=== PATIENT | male | born 1955 | race Caucasian/White ===

== ENCOUNTER → 2018-11-22 | Outpatient (CLI) | payer OTHER, SELFPAY | PROVIDERS: PCP Internal Medicine; Visit Provider Internal Medicine | DX: Z00.00 Encounter for general adult medical examination without abnormal findings (principal); R73.03 Prediabetes; I10 Essential (primary) hypertension; E78.2 Mixed hyperlipidemia; Z79.899 Other long term (current) drug therapy; E03.9 Hypothyroidism, unspecified | CPT/HCPCS: 36415; 80053; 80061; 83036; 84443 ==

== ENCOUNTER → 2020-07-07 15:13 | Outpatient (CLI) | payer OTHER, SELFPAY ==
--- NOTE | ~2020-07-07 | US_ITS ---
EXAMINATION: US scrotum doppler EXAM DATE: 07/07/2020 15:45 INDICATION: N50.819 - Testicular pain, unspecified. TECHNIQUE: Multiple grayscale and Doppler images of the testicles and scrotum were obtained bilateral ly. There is no prior study for comparison. FINDINGS: Right testicle measures 3.4 x 2.4 x 2.7 cm and is morphologically normal. Low resistance Doppler khanh w confirmed. The epididymis is unremarkable. Small varicocele and trace hydrocele. Left testicle measures 3.9 x 1.7 x 2.7 cm and is morphologically normal. Low resistance Doppler flow confirmed. The epididymis is unremarkable. Trace hydrocele. IMPRESSION: 1. Small right varicocele and trace hydrocele. 2. Trace left hydrocele. Reviewed, dictated and finalized at location B. 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
== END ==
PROVIDERS: Visit Provider Internal Medicine
DX: N50.819 Testicular pain, unspecified (principal); N43.3 Hydrocele, unspecified
CPT/HCPCS: 76870; 93976

== ENCOUNTER 2022-01-12 17:41 | Emergency (ER) | payer OTHER, SELFPAY ==
[2022-01-12 17:50] VITALS: BP 127/75; PULSE 92; RESP 16; TEMP 36; O2SAT 98
--- NOTE | 2022-01-12 18:05 | ED.URI ---
HPI - URI/Sore Throat General Chief Complaint: Upper Respiratory Infection Stated Complaint: Sore throat, drainage Time Seen by Provider: 01/12/22 18:06 Source: patient, RN notes reviewed and old records reviewed Mode of arrival: ambulatory Limitations: no limitations History of Present Illness HPI Narrative: 66-year-old male presents to the [facility] with complaints of sinus drainage, worse at night has been going on for the last 2 to 3 days. Has taken throat lozenges and does take Claritin daily. Denies any fever, chest pain, abdominal pain. Related Data Home Medications Medication Instructions Recorded Confirmed loratadine 10 mg tablet 10 mg PO DAILY 05/18/19 01/12/22 multivitamin 1 tablet PO DAILY 05/18/19 01/12/22 omega 5-mfr-zti-fish oil 1,000 mg 1 cap PO DAILY 05/18/19 01/12/22 (120 mg-180 mg) capsule (Fish Oil) Allergies Allergy/AdvReac Type Severity Reaction Status Date / Time No Known Allergies Allergy Verified 01/12/22 17:43 Review of Systems Review of Systems: All systems reviewed & are unremarkable except as noted in HPI and below Constitutional: Constitutional: Reports no additional constitutional complaints, Denies chills and Denies fever(s) Eyes: Eyes: Reports no additional eye complaints ENT: Reports as per HPI (Postnasal drainage), Reports nasal congestion and Reports sore throat Cardiovascular: Cardiovascular: Reports no additional cardiovascular complaints Respiratory: Respiratory: Reports no additional respiratory complaints Gastrointestinal: Gastrointestinal: Reports no additional gastrointestinal complaints Musculoskeletal: Musculoskeletal: Reports no additional musculoskeletal complaints Integumentary/Breasts: Skin/Breast: Reports system reviewed and no additional complaints, except as docu Neurologic: Reports system reviewed and no additional complaints, except as documented Psychiatric: Psychiatric: Reports no additional psychiatric complaints Allergic/Immunologic: Allergic/Immunologic: Reports no additional allergic/immunologic complaints [facility] Past Medical History Medical History Acute bilateral low back pain without sciatica Body mass index 26.0-26.9, adult Colonoscopy planned FH: cholecystectomy Irritation of right ear Prediabetes Surgical History Surgical History History of ankle surgery Hx of tonsillectomy Family History Family History Father Family history of diabetes mellitus in first degree relative Sibling Family history of malignant neoplasm of ovary Other Family history of hypercholesterolemia Hypertension Social History Social History Smoking status: Never smoker Second hand tobacco smoke exposure: Yes Alcohol intake: current Alcohol use details: beer or 2 every couple months Substance use: never Substance use type: does not use Comments At the time of my signature, I reviewed and agree with the nursing past medical, surgical, social, and family history. There is no relevant family history pertinent to the patient complaint. Exam Const: General: healthy appearing, no acute distress and alert Nutritional Appearance: well nourished Orientation/consciousness: patient oriented x3 Limitations: no limitations HENMT: Head: normal to inspection Ears: external ears normal, TM's normal bilaterally and EAC's normal General nose exam: Normal external nose present and Normal nares present Face and sinus: normal facial exam Mouth: Yes Normal oral and palatal mucosa present, Yes lip normal and Yes moist mucous membranes Throat: tonsils normal, uvula midline, postnasal drainage and no uvular edema Eyes: General: appearance normal, both eyes and all related structures Pupils: Equal, round and reactive pupils present Neck:
== END 2022-01-12 18:23 | disposition home or self-care (01) ==
PROVIDERS: Emergency Provider Nurse Practitioner
DX: R09.82 Postnasal drip (principal); R73.03 Prediabetes
CPT/HCPCS: 99213; G0463

== ENCOUNTER 2022-01-18 12:36 | Outpatient (CLI) | payer OTHER, SELFPAY ==
--- NOTE | ~2022-01-18 | XR_ITS ---
EXAMINATION: XR chest 2V 01/18/2022 12:52 INDICATION: Bronchitis PROCEDURE: 2 view chest COMPARISON: 09/08/2014 FINDINGS: The lungs are clear. The cardiomediastinal silhouette is within normal limits. There are no pleural effusions. There is no pneumothorax suspected. IMPRESSION: 1: NO ACUTE CARDIOPULMONARY DISEASE. Reviewed, dictated and finalized at location B.
== END 2022-01-18 12:37 | disposition home or self-care (01) ==
LOC: ANHIMG 12:39
PROVIDERS: PCP Internal Medicine; Visit Provider Internal Medicine
DX: J40 Bronchitis, not specified as acute or chronic (principal)
CPT/HCPCS: 71046

== ENCOUNTER → 2022-06-11 15:21 | Outpatient (CLI) | payer OTHER, SELFPAY ==
--- NOTE | ~2022-06-11 | XR_ITS ---
XR knee RT 3V 06/11/2022 15:47 Indication: Right knee pain Procedure: 3 views right knee Comparison: No prior studies for comparison. Findings: There is mild osteoarthritis of the right knee. There is chondrocalcinosis. No significant joint effusion. There is patella kim. Impression: 1: Mild osteoarthritis of the right knee. Reviewed, dictated and finalized at location A. 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
== END ==
PROVIDERS: PCP Internal Medicine; Visit Provider Nurse Practitioner
DX: M17.11 Unilateral primary osteoarthritis, right knee (principal)
CPT/HCPCS: 73562

== ENCOUNTER 2022-09-09 18:33 | Emergency (ER) | payer OTHER, SELFPAY ==
--- NOTE | 2022-09-09 18:48 | ED.URI ---
HPI - URI/Sore Throat General Chief Complaint: Upper Respiratory Infection Stated Complaint: Sore Throat Time Seen by Provider: 09/09/22 19:08 Source: patient and RN notes reviewed Mode of arrival: ambulatory Limitations: no limitations History of Present Illness HPI Narrative: 67-year-old male presents with concern for hoarse voice. Reports about 10 day history of hoarse voice. He reports he has chronic sinus problems that have not worsened in the last 10 days he takes medication for sinuses that has been working well. He reports some mild chest congestion. He denies known sick contacts. He denies fever, aches, chills, sweats. MD elicited complaint: other (Hoarse voice) Related Data Home Medications Medication Instructions Recorded Confirmed loratadine 10 mg tablet 10 mg PO DAILY 05/18/19 09/09/22 multivitamin 1 tablet PO DAILY 05/18/19 09/09/22 omega 9-lzv-zgj-fish oil 1,000 mg 1 cap PO DAILY 05/18/19 09/09/22 (120 mg-180 mg) capsule (Fish Oil) Allergies Allergy/AdvReac Type Severity Reaction Status Date / Time No Known Allergies Allergy Verified 09/09/22 18:38 Review of Systems Review of Systems: CONSTITUTIONAL: Denies malaise, chills, sweats, or fever. EYES: Denies visual changes, redness, or discharge. ENT: Reports rhinorrhea, hoarse voice. Denies congestion, sinus pain, otalgia and sore throat. CARDIOVASCULAR: Denies chest pain, palpitations, or edema. RESPIRATORY: Reports chest congestion. Denies dyspnea. GASTROINTESTINAL: Denies abdominal pain, nausea, vomiting, diarrhea SKIN: Denies rash or itching. MUSCULOSKELETAL: Denies myalgia. NEUROLOGIC: Denies headache. All systems reviewed & are unremarkable except as noted in HPI and below PMFSH Past Medical History Medical History (Updated 09/09/22 @ 19:14 by Kathy Macias NP) Acute bilateral low back pain without sciatica Adult hypothyroidism Body mass index 26.0-26.9, adult Colonoscopy planned Essential (primary) hypertension FH: cholecystectomy Irritation of right ear Mixed hyperlipidemia Osteoarthritis Prediabetes Surgical History Surgical History History of ankle surgery Hx of tonsillectomy Family History Family History Father Family history of diabetes mellitus in first degree relative Sibling Family history of malignant neoplasm of ovary Other Family history of hypercholesterolemia Hypertension Social History Social History Smoking status: Never smoker Second hand tobacco smoke exposure: Yes Alcohol intake: current Alcohol use details: rarely Substance use: never Substance use type: does not use Lack of Transportation: No Lack of Food: Never True Current Housing: I Have Housing Concerned About Future Housing: No Difficulty Paying Gas/Electric Bills: No Difficulty Paying for Meds: No Currently Unemployed: No Education: High School Diploma/GED Difficulty w/ Childcare or Family Care: No Comments At time of signature, agree with nursing past medical, surgical, social and family history. There is no relevant family history pertinent to the presenting complaint Exam Narrative: GENERAL: Well-appearing, well-nourished, and in no acute distress. HEAD: Normocephalic EYES: PERRLA, conjunctivae clear ENT: Nares clear, clear discharge. Mucous membranes moist. TM pearly james with sharp light reflex bilaterally; no tragal tenderness. Oropharynx not erythematous without lesions. Tonsils not enlarged and without exudate, no drooling, no trismus, uvula midline. Mild hoarse voice NECK: Supple. No lymphadenopathy, no thyromegaly CHEST: Clear to auscultation, breath sounds equal. No wheezing, rhonchi, rales, or stridor. No respiratory distress, speaks in full sentences. HEART: Regular rate and rhythm. No murmur heard. SKIN: Warm, dry, no rash.
[2022-09-09 18:50] VITALS: BP 124/68; PULSE 94; RESP 12; TEMP 36.4; O2SAT 96
== END 2022-09-09 19:18 | disposition home or self-care (01) ==
PROVIDERS: Emergency Provider Nurse Practitioner; PCP Internal Medicine
DX: J04.0 Acute laryngitis (principal); Z20.822 Contact with and (suspected) exposure to COVID-19; E03.9 Hypothyroidism, unspecified; I10 Essential (primary) hypertension; E78.2 Mixed hyperlipidemia; M19.90 Unspecified osteoarthritis, unspecified site; R73.03 Prediabetes
CPT/HCPCS: 87081; 87426; 87804; 87880; 99213; C9803; G0463

== ENCOUNTER 2024-06-26 15:50 | Outpatient (CLI) | payer MEDICARE, SELFPAY ==
--- NOTE | ~2024-06-26 | MR_ITS ---
EXAMINATION: MR knee LT wo con DATE: 06/26/2024 16:27 INDICATION: Other tear of medial meniscus, current injury. Left knee pain. TECHNIQUE: Magnetic resonance imaging (MRI) of the left knee was performed without intravenous contra st. Sequences included axial PD-weighted FS FSE, coronal PD-weighted FSE and PD-weighted FS FSE, sagi ttal PD-weighted FSE, and sagittal T2-weighted FS FSE. COMPARISON: Left knee radiographs 06/12/24 FINDINGS: Medial compartment: Medial meniscus is normal. There is cartilage surface irregularity of tibial condyle. There is full-t hickness cartilage loss of femoral condyle involving the central articular surface with mild subchond ral edema-like marrow signal intensity. Marginal osteophytes are noted. Lateral compartment: Lateral meniscus is normal. There is cartilage surface irregularity of tibial condyle. There is parti al-thickness cartilage loss of femoral condyle with deep fissuring at the central articular surface. There are marginal osteophytes. Patellofemoral compartment: There is full-thickness cartilage loss of patellar lateral facet with subchondral edema-like marrow s ignal intensity and small subchondral cysts. There is deep partial-thickness cartilage loss of patell ar median ridge and medial facet with mild subchondral edema-like marrow signal intensity. There is f ull-thickness cartilage loss of medial, central, and lateral trochlea with subchondral edema-like mar row signal intensity and subchondral cysts. Osteophytes are noted. Ligaments and tendons: The anterior and posterior cruciate ligaments are normal. There are changes of prior sprains of media l collateral ligament and fibular collateral ligament characterized by increased signal intensity pro ximally. There is mild patellar tendinopathy. Fluid: There is a small knee joint effusion. There is trace fluid in a Escobar's cyst. There is a multiloculat ed ganglion cyst along the popliteus tendon. There is mild prepatellar and superficial infrapatellar bursitis. IMPRESSION: 1. Severe chondrosis of medial and patellofemoral compartments and moderate chondrosis of lateral com partment. 2. Small knee joint effusion. Reviewed, dictated and finalized at location B. 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 Severe chondrosis of medial and patellofemoral compartments and moderate cho ndrosis of lateral compartment. 2. Small knee joint effusion.
== END 2024-06-26 15:51 | disposition home or self-care (01) ==
LOC: ANHIMG 15:51
PROVIDERS: PCP Internal Medicine; Visit Provider Orthopaedic Surgery
DX: S83.242A Other tear of medial meniscus, current injury, left knee, initial encounter (principal); X58.XXXA Exposure to other specified factors, initial encounter; M25.462 Effusion, left knee
CPT/HCPCS: 73721